=== PATIENT | female | born 1960 | race Caucasian/White ===

== ENCOUNTER 2019-09-13 11:22 | Emergency (ER) | payer BC, SELFPAY ==
[2019-09-13 11:58] VITALS: BP 145/80; PULSE 79; RESP 16; TEMP 36.9; O2SAT 98
--- NOTE | 2019-09-13 12:20 | ED.FEMALEGU ---
HPI - Female Genitourinary General Chief complaint: Urogenital-Female Stated complaint: Abdominal pain Time Seen by Provider: 09/13/19 12:20 Source: patient and RN notes reviewed Mode of arrival: ambulatory Limitations: no limitations History of Present Illness HPI Narrative: This is a 59 years old female presents to the office for an evaluation of possible UTI. Onset three days ago with back pain, low grade fever, blood tinge urine, and headache. Associated with nausea. Denies history of UTI/kidneystones. She only has nectarine for food all day today. No RX prior to arrival. Related Data Allergies Allergy/AdvReac Type Severity Reaction Status Date / Time adhesive tape Allergy Blister Verified 09/13/19 12:10 Review of Systems Review of Systems: Narrative: CONSTITUTIONAL: Reports fever and not feeling well ENT: Denies congestion CARDIOVASCULAR: Denies chest pain RESPIRATORY: Denies dyspnea, cough GASTROINTESTINAL: Denies abdominal pain, vomiting, diarrhea. Reports nausea GENITOURINARY: Denies urinary frequency, urgency or pain or vaginal discharge SKIN: Denies rash MUSCULOSKELETAL: Reports flank pain; which she took tramadol for pain without any relief. NEUROLOGIC: Denies lightheaded All other systems reviewed are negative, except as documented in HPI. PMFSH Past Medical History Medical History (Updated 09/13/19 @ 12:32 by MARIAN Messina) History of osteomyelitis Family History Family History (Updated 11/25/18 @ 14:59 by DOCTOR UNKNOWN) Mother Hypertension Grandparent Hypertension Cerebrovascular accident Family history of lung cancer Father Family history of malignant neoplasm of esophagus Social History Social History Smoking status: Never smoker Alcohol intake: never Gender identity (if verbalized by the patient): Female Comments At time of signature, I agree with nursing past medical, surgical, social and family history. There is no relevant family history pertinent to the presenting complaint. Exam Narrative: Exam Narrative: GENERAL: This is a well-nourished, well-developed patient, in no apparent distress. CARDIOVASCULAR: Regular rate and rhythm without murmurs, gallops, or rubs. RESPIRATORY: Clear to auscultation. Breath sounds equal bilaterally. No wheezes, rales, or rhonchi. GASTROINTESTINAL: Abdomen soft, non-tender, nondistended. Bowel sounds are active. No hepato-splenomegaly, or palpable masses. No guarding. SKIN: warm, intact with no suspicious lesions or rash, good texture and turgor. NEURO: awake, alert, and oriented to person, place and time. There were no obvious focal neurologic abnormalities. Steady gait BACK: Nontender without deformity or crepitance. No flank tenderness. Lavern Coma Scale Eye Opening: Spontaneous 4 Lavern Coma Scale Motor: Obeys Commands 6 Lavern Coma Scale Verbal: Oriented 5 Course Vital Signs Vital signs: Vital Signs Temperature 98.5 F 09/13/19 11:58 Pulse Rate 79 09/13/19 11:58 Respiratory Rate 16 09/13/19 11:58 Blood Pressure 145/80 H 09/13/19 11:58 Pulse Oximetry 98 09/13/19 11:58 Temperature 98.5 F 09/13/19 11:58 Pulse Rate 79 09/13/19 11:58 Respiratory Rate 16 09/13/19 11:58 Blood Pressure 145/80 H 09/13/19 11:58 Pulse Oximetry 98 09/13/19 11:58 MDM - Female Genitourinary MDM Narrative Medical decision making narrative: Elevated BP noted: patient is informed that they may have pre-hypertension or hypertension based on a blood pressure reading in the department. I recommend the patient call the primary care provider listed on their discharge instructions or a physician of their choice this week to arrange follow-up for further evaluation of possible pre-hypertension or hypertension within 1-2week. Patient was very dry heaving during examination so I went ahead and give patient ODT Zofran. Patient reports feeling much better after medication. Discharge instructions reviewed with patient,
[2019-09-13] MEDS: ONDANSETRON HCL ODT 4 MG TABLET PO (12:31)
== END 2019-09-13 12:52 | disposition home or self-care (01) ==
PROVIDERS: Emergency Provider Nurse Practitioner
DX: R10.9 Unspecified abdominal pain (principal); M54.5 Low back pain; R50.9 Fever, unspecified
CPT/HCPCS: 81003; 87086; 99213; A9270; G0463

== ENCOUNTER 2022-01-27 10:37 | Emergency (ER) | payer OTHER, SELFPAY ==
--- NOTE | 2022-01-27 10:48 | ED.URI ---
HPI - URI/Sore Throat General Chief Complaint: Upper Respiratory Infection Stated Complaint: SORE THROAT/CONGESITON Time Seen by Provider: 01/27/22 11:23 Source: patient, RN notes reviewed and old records reviewed Mode of arrival: ambulatory Limitations: no limitations History of Present Illness HPI Narrative: 61 yo female presents to the [facility] with complaints of sore throat and congestion since yesterday. Reports exposure to flu. Has not taken anything for her symptoms. Reports that it feels like she is swallowing glass. Related Data Home Medications Medication Instructions Recorded Confirmed No Home Medications 01/27/22 01/27/22 Allergies Allergy/AdvReac Type Severity Reaction Status Date / Time adhesive tape Allergy Blister Verified 09/13/19 12:10 Review of Systems Review of Systems: All systems reviewed & are unremarkable except as noted in HPI and below Constitutional: Constitutional: Reports no additional constitutional complaints, Denies chills and Denies fever(s) Eyes: Eyes: Reports no additional eye complaints ENT: Reports as per HPI and Reports sore throat Cardiovascular: Cardiovascular: Reports no additional cardiovascular complaints Respiratory: Respiratory: Reports no additional respiratory complaints Gastrointestinal: Gastrointestinal: Reports no additional gastrointestinal complaints Musculoskeletal: Musculoskeletal: Reports no additional musculoskeletal complaints Integumentary/Breasts: Skin/Breast: Reports system reviewed and no additional complaints, except as docu Neurologic: Reports system reviewed and no additional complaints, except as documented Psychiatric: Psychiatric: Reports no additional psychiatric complaints Allergic/Immunologic: Allergic/Immunologic: Reports no additional allergic/immunologic complaints PMFSH Past Medical History Medical History History of osteomyelitis Family History Family History Mother Hypertension Grandparent Hypertension Cerebrovascular accident Family history of lung cancer Father Family history of malignant neoplasm of esophagus Social History Social History Smoking status: Never smoker Alcohol intake: never Gender identity (if verbalized by the patient): Female Comments At the time of my signature, I reviewed and agree with the nursing past medical, surgical, social, and family history. There is no relevant family history pertinent to the patient complaint. Exam Const: General: healthy appearing, comfortable, no acute distress, well developed, alert and well nourished Nutritional Appearance: well nourished Orientation/consciousness: patient oriented x3 Limitations: no limitations HENMT: Head: normal to inspection Ears: external ears normal, TM's normal bilaterally and EAC's normal Face/Nose/Sinus: Normal external nose present and Normal nares present Face and sinus: normal facial exam Mouth: Yes Normal oral and palatal mucosa present, Yes lip normal and Yes moist mucous membranes Throat: posterior oropharynx normal, tonsils normal and uvula midline Eyes: General: appearance normal, both eyes and all related structures Conjunctivae: conjunctivae normal Pupils: Equal, round and reactive pupils present Neck: Neck: normal visual inspection, full ROM, no lymphadenopathy and no meningeal signs Chest: Chest palpation & inspection: normal inspection of the chest Resp: Effort & Inspection: normal respiratory effort and no use of accessory muscles Cardio: Rate: regular rate Rhythm: regular rhythm Back/Spine/Pelvis: Cervical Spine: cervical ROM normal and No Cervical spine tenderness Thoracic/Lumbar Spine: thoracic and lumbar spine normal to inspection and thoraco-lumbar ROM normal Skin: General skin exam: normal color Rashes: no rashes Wounds: no woun
[2022-01-27 11:18] VITALS: BP 121/98; PULSE 98; RESP 16; TEMP 37.4; O2SAT 98
== END 2022-01-27 11:55 | disposition home or self-care (01) ==
PROVIDERS: Emergency Provider Nurse Practitioner; PCP Registered Nurse
DX: J02.9 Acute pharyngitis, unspecified (principal)
CPT/HCPCS: 87081; 87147; 87804; 87880; 99213; G0463

== ENCOUNTER 2022-11-27 09:19 | Outpatient (CLI) | payer OTHER, SELFPAY ==
--- NOTE | ~2022-11-27 | US_ITS ---
US soft tissue head and neck 11/27/2022 09:53 Indication: Palpable right lump Posteriorly Procedure: High-resolution Limited ultrasound of the right neck posteriorly in the area of palpable c oncern Comparison: No prior studies for comparison. Findings: In the area of palpable concern there is an oval hypoechoic mass measuring 1.3 x 1.1 x 0.5 cm with internal vascularity. No normal fatty hilum. No other discrete mass or fluid collection is se en. Impression: 1: Abnormal oval hypoechoic right posterior neck mass measuring 1.3 cm, most likely pathologic lymph node with loss of normal fatty hilum. Consider correlation with contrast-enhanced CT neck. Reviewed, dictated and finalized at location A. Impression: 1: Abnormal oval hypoechoic right posterior neck mass measuring 1.3 cm, most li megan pathologic lymph node with loss of normal fatty hilum. Consider correlatio n with contrast-enhanced CT neck.
--- NOTE | ~2022-11-27 | US_ITS ---
Limited Abdominal Sonogram: Real-time sonographic imaging of the right upper quadrant was performed. Clinical History: Right upper quadrant pain Findings: The liver appears mildly echogenic, with no evidence of mass lesion or bile duct dilatatio n. Main portal vein demonstrates normal direction of flow. The gallbladder is well distended, and mk ears normal with no evidence of gallstone or wall thickening. The common bile duct measures 4 mm. Th e visualized pancreas, aorta, and IVC are unremarkable. Impression: Fatty infiltration of the liver. Reviewed, dictated and finalized at location M. Impression: Fatty infiltration of the liver.
== END 2022-11-27 09:20 ==
PROVIDERS: PCP Registered Nurse; Visit Provider Registered Nurse
DX: R59.0 Localized enlarged lymph nodes (principal); R10.11 Right upper quadrant pain; K76.0 Fatty (change of) liver, not elsewhere classified
CPT/HCPCS: 76536; 76705